=== PATIENT | female | born 1970 | race Caucasian/White ===

== ENCOUNTER → 2018-01-25 | Outpatient (CLI) | payer OTHER | END | disposition home or self-care (01) | LOC: RAD 09:48 | DX: J42 Unspecified chronic bronchitis (principal); M50.321 Other cervical disc degeneration at C4-C5 level ==

== ENCOUNTER 2018-10-18 20:47 | Emergency (ER) | payer OTHER ==
[~2018-10-18] VITALS: Ht 162.6 cm; Wt 61.2 kg
[2018-10-18] MEDS ORDERED: KETO10TA2 (20:56)
[2018-10-18] MEDS ORDERED: [UNRECOGNIZED DRUG - OTHER] (20:57)
[2018-10-19] MEDS ORDERED: ALLEGRA ALLERG180 MG PO (04:11)
[2018-10-19] MEDS ORDERED: MECLIZINE HCL25 MG PO (04:11)
== END 2018-10-19 04:16 | disposition home or self-care (01) ==
LOC: ER 20:47
DX: R42 Dizziness and giddiness (principal)

== ENCOUNTER 2018-10-20 08:45 | Inpatient (IN) | payer OTHER ==
[~2018-10-20] VITALS: Ht 162.6 cm; Wt 61.2 kg
[~2018-10-20 08:45] MED LIST: ALLEGRA ALLERG180 MG PO; KETO10TA2; MECLIZINE HCL25 MG PO; [UNRECOGNIZED DRUG - OTHER]
[2018-10-23] MEDS ORDERED: LAMISIL250 MG (13:41)
[2018-10-24] MEDS ORDERED: AMOX1TAB5 PO (16:21)
[2018-10-24] MEDS ORDERED: INTESTINEX680 M1 PO (16:21)
== END 2018-10-24 17:31 | disposition home or self-care (01) | DRG 641 ==
LOC: ER 08:45 → MEDJ 10-21 14:32 → MEDI 10-21 14:32 → MEDJ 10-21 20:23
PROVIDERS: ADMIT Internal Medicine
PROC: BW28ZZZ Computerized Tomography (CT Scan) of Head (ICD-10-PCS; principal; 2018-10-21)
DX: E86.0 Dehydration (principal); K92.81 Gastrointestinal mucositis (ulcerative); J31.2 Chronic pharyngitis; E87.8 Other disorders of electrolyte and fluid balance, not elsewhere classified; J02.9 Acute pharyngitis, unspecified; R42 Dizziness and giddiness; K29.00 Acute gastritis without bleeding; M50.322 Other cervical disc degeneration at C5-C6 level; J01.00 Acute maxillary sinusitis, unspecified; J32.0 Chronic maxillary sinusitis; M51.16 Intervertebral disc disorders with radiculopathy, lumbar region

== ENCOUNTER 2018-11-03 13:15 | Emergency (ER) | payer OTHER ==
[~2018-11-03] VITALS: Ht 162.6 cm; Wt 56.7 kg
[~2018-11-03 13:15] MED LIST changes: +AMOX1TAB5 PO; +INTESTINEX680 M1 PO; +LAMISIL250 MG
== END 2018-11-03 22:40 | disposition home or self-care (01) ==
LOC: ER 13:15
DX: K29.60 Other gastritis without bleeding (principal); R10.13 Epigastric pain